=== PATIENT | female | born 1985 | race Caucasian/White ===

== ENCOUNTER → 2022-09-05 16:48 | Outpatient (CLI) | payer BC, SELFPAY ==
[2022-09-05 17:38] LABS: Add Manual Diff / Slide Review NO; Basophils Absolute Auto 0 /uL (0-100); Basophils Percent Auto 0.4 % (0-2); Eosinophils Absolute Auto 100 /uL (0-450); Eosinophils Percent Auto 1.9 % (2-4); Lymphocytes Absolute Auto 2200 /uL (1100-4500); Lymphocytes Percent Auto 29.8 % (25-40); Mean Corpuscular HGB Conc 33.4 % (30-36); Mean Corpuscular Hemoglobin 27.7 PG (26-34); Mean Corpuscular Volume 82.9 fL (80-100); Monocytes Absolute Auto 500 /uL (0-900); Monocytes Percent Auto 6.9 % (3-14); Neutrophils Absolute Auto 4500 /uL (1500-7000); Platelet Count 275 X10^3/uL (150-400); Red Cell Distribution Width 12.5 % (11.6-14.8); White Blood Cell Count 7.3 X10^3/uL (4.5-11.0)
[2022-09-05 18:08] LABS: Alanine Aminotransferase 18 IU/L (<35); Albumin 4.9 g/dL (3.5-5.0); Albumin Globulin Ratio 1.4 (1.0-2.8); Alkaline Phosphatase 89 U/L (38-126); Aspartate Aminotransferase 21 IU/L (14-36); BUN Creatinine Ratio 25.4 (6-22); Bilirubin Total 0.2 mg/dL (0.2-1.3); Blood Urea Nitrogen 15 mg/dL (7-17); C-Reactive Protein Quant < 0.5 mg/dL (<1.0); Calcium 9.7 mg/dL (8.4-10.2); Carbon Dioxide 27 mmol/L (22-32); Chloride 101 mmol/L (98-107); Estimated Glomerular Filt Rate > 60 mL/min (>60); Globulin 3.5 g/dL (1.7-4.1); Glucose 103 mg/dL (70-100); HEMOLYSIS < 15 (0-50); Potassium 3.6 mmol/L (3.4-5.1); Sodium 139 mmol/L (137-145); Total Protein 8.4 g/dL (6.3-8.2)
[2022-09-05 18:31] LABS: Rheumatoid Factor < 8.6 IU/mL (<12.0)
[2022-09-05 18:37] LABS: TSH w/ Reflex to FT4 3.15 uIU/mL (0.47-4.68)
[2022-09-05 20:23] LABS: Erythrocyte Sedimentation Rate 5 MM/HR (0-20)
[2022-09-07 11:16] LABS: CCP Antibodies IgG/IgA 2 units (0-19)
[2022-09-08 16:06] LABS: ANA Screen, IFA Negative (.)
== END ==
PROVIDERS: PCP Family Medicine; Referring Provider Family Medicine; Visit Provider Family Medicine
DX: E78.5 Hyperlipidemia, unspecified (principal); I73.00 Raynaud's syndrome without gangrene; M25.50 Pain in unspecified joint
CPT/HCPCS: 36415; 80053; 84443; 84550; 85025; 85651; 86038; 86140; 86200; 86430

== ENCOUNTER → 2023-10-16 17:30 | Outpatient (CLI) | payer BC, SELFPAY | PROVIDERS: PCP Family Medicine; Visit Provider Registered Nurse | DX: J02.9 Acute pharyngitis, unspecified (principal) | CPT/HCPCS: 87070 ==

== ENCOUNTER → 2023-10-25 16:20 | Outpatient (CLI) | payer BC, SELFPAY ==
[2023-10-25 17:18] LABS: Add Manual Diff / Slide Review NO; Basophils Absolute Auto 100 /uL (0-100); Basophils Percent Auto 0.8 % (0-2); Eosinophils Absolute Auto 200 /uL (0-450); Hematocrit 37.6 % (36-46); Hemoglobin 12.4 g/dL (12.0-16.0); Lymphocytes Absolute Auto 2500 /uL (1100-4500); Lymphocytes Percent Auto 32.2 % (25-40); Mean Corpuscular HGB Conc 32.9 % (30-36); Mean Corpuscular Hemoglobin 27.4 PG (26-34); Mean Corpuscular Volume 83.3 fL (80-100); Monocytes Absolute Auto 500 /uL (0-900); Monocytes Percent Auto 6.4 % (3-14); Neutrophils Absolute Auto 4600 /uL (1500-7000); Neutrophils Percent Auto 58.6 % (50-75); Platelet Count 263 X10^3/uL (150-400); Red Blood Cell Count 4.51 X10^6/uL (4.0-5.2); White Blood Cell Count 7.9 X10^3/uL (4.5-11.0)
[2023-10-25 17:50] LABS: Alanine Aminotransferase 16 IU/L (<35); Albumin 4.5 g/dL (3.5-5.0); Albumin Globulin Ratio 1.3 (1.0-2.8); Alkaline Phosphatase 72 U/L (38-126); Aspartate Aminotransferase 20 IU/L (14-36); BUN Creatinine Ratio 18.2 (6-22); Bilirubin Total 0.3 mg/dL (0.2-1.3); Blood Urea Nitrogen 12 mg/dL (7-17); Calcium 9.5 mg/dL (8.4-10.2); Carbon Dioxide 27 mmol/L (22-32); Chloride 104 mmol/L (98-107); Cholesterol 163 mg/dL (140-199); Estimated Glomerular Filt Rate > 60 mL/min (>60); Globulin 3.4 g/dL (1.7-4.1); Glucose 97 mg/dL (70-100); HDL Cholesterol 45 mg/dL (40-60); HEMOLYSIS < 15 (0-50); LDL Cholesterol Calculated 101 mg/dL (<100); Potassium 4.1 mmol/L (3.4-5.1); Sodium 138 mmol/L (137-145); Total Protein 7.9 g/dL (6.3-8.2); Triglycerides 86 mg/dL (35-150)
[2023-10-26 16:34] LABS: HIV 1 & 2 Ab/Ag 4th Gen Combo NEGATIVE (NEGATIVE); Hep C Virus Ab w/Reflex Quant NEGATIVE s/c (NEGATIVE)
== END ==
LOC: LAB 16:20
PROVIDERS: PCP Family Medicine; Referring Provider Family Medicine; Visit Provider Family Medicine
DX: Z00.00 Encounter for general adult medical examination without abnormal findings (principal); Z11.4 Encounter for screening for human immunodeficiency virus [HIV]; Z11.59 Encounter for screening for other viral diseases; G44.84 Primary exertional headache
CPT/HCPCS: 36415; 80053; 80061; 85025; 86803; 87389

== ENCOUNTER → 2023-11-04 07:25 | Outpatient (CLI) | payer BC, SELFPAY ==
--- NOTE | 2023-11-04 07:28 | DI.MRI.S_ITS ---
PROCEDURE: MR HEAD/BRAIN WO/W CON INDICATIONS: exertional MADISON's TECHNIQUE: Noncontrast axial T1 spin echo, axial T2 fast spin echo, sagittal and axial FLAIR, coronal T2 fast spin echo, axial gradient echo, axial diffusion and ADC through the brain. After the administration of contrast, axial and coronal and sagittal 3D VIBE or T1 spin echo with fat saturation through the brain. COMPARISON: None. FINDINGS: Image quality: Diagnostic, with note made of motion artifact. CSF Spaces: Basal cisterns are patent. No extra-axial fluid collections. Ventricles are normal in size and shape. Brain: No midline shift. No intracranial bleeds or masses. No abnormal intracranial enhancement. The brainstem appears normal. Diffusion-weighted images demonstrate no acute infarct. No chronic ischemic insults. Normal intravascular flow voids are present. The cerebellar tonsils demonstrate a normal shape and are not abnormally low lying. Skull and face: Calvarial marrow is normal in signal. Orbits appear normal. Sinuses: Sinuses and mastoids appear clear. IMPRESSION: Normal intracranial study, without a cause of the patient's presenting history identified. No masses or abnormal enhancement can be seen. Negative for Chiari 1 malformation, hydrocephalus, or brain edema. If there is strong clinical concern for an intracranial aneurysm in this patient with this given history, please consider a dedicated MR angiogram for further evaluation. Dictated by: Miguel Henderson M.D. on 11/06/2023 at 10:15 Approved by: Miguel Henderson M.D. on 11/06/2023 at 10:17
== END ==
LOC: MRI 07:26
PROVIDERS: PCP Family Medicine; Referring Provider Family Medicine; Visit Provider Family Medicine
DX: G44.84 Primary exertional headache (principal)
CPT/HCPCS: 70553; A9579

== ENCOUNTER 2024-02-18 15:00 | Emergency (ER) | payer BC, SELFPAY ==
[2024-02-18] VITALS (9 sets, daily range): BP systolic 114–168; BP diastolic 67–84; PULSE 73–103; RESP 9–24; TEMP 36.7; O2SAT 100; BMI 29.0
--- NOTE | 2024-02-18 15:03 | DI.RAD.S_ITS ---
PROCEDURE: XR CHEST 1V INDICATIONS: chest pain TECHNIQUE: One view of the chest was acquired. COMPARISON: None. FINDINGS: Surgical changes and devices: None. Lungs and pleura: Lungs are clear. No pleural effusions or pneumothorax. Mediastinum: Mediastinal contours appear normal. Heart size is normal. Bones and chest wall: No suspicious bony lesions. Overlying soft tissues appear unremarkable. IMPRESSION: No acute cardiopulmonary abnormality is seen. Dictated by: Miguel Henderson M.D. on 02/18/2024 at 14:51 Approved by: Miguel Henderson M.D. on 02/18/2024 at 14:52
--- NOTE | 2024-02-18 15:03 | EKG_ITS ---
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
[2024-02-18 15:36] LABS: Add Manual Diff / Slide Review NO; Basophils Absolute Auto 100 /uL (0-100); Basophils Percent Auto 0.9 % (0-2); Eosinophils Absolute Auto 100 /uL (0-450); Eosinophils Percent Auto 0.7 % (2-4); Hemoglobin 12.7 g/dL (12.0-16.0); Lymphocytes Absolute Auto 2300 /uL (1100-4500); Lymphocytes Percent Auto 25.7 % (25-40); Mean Corpuscular HGB Conc 32.7 % (30-36); Mean Corpuscular Hemoglobin 27.8 PG (26-34); Monocytes Absolute Auto 400 /uL (0-900); Monocytes Percent Auto 4.8 % (3-14); Neutrophils Absolute Auto 6100 /uL (1500-7000); Neutrophils Percent Auto 67.9 % (50-75); Platelet Count 267 X10^3/uL (150-400); Red Blood Cell Count 4.59 X10^6/uL (4.0-5.2); Red Cell Distribution Width 12.6 % (11.6-14.8); White Blood Cell Count 9.1 X10^3/uL (4.5-11.0)
[2024-02-18 15:37] LABS: Prothrombin Time 11.1 SECONDS (9.4-12.5)
[2024-02-18 15:40] LABS: PTT Partial Thromboplastin Tim 34 SECONDS (25.1-36.5)
[2024-02-18 15:41] LABS: Alanine Aminotransferase 22 IU/L (<35); Albumin Globulin Ratio 1.6 (1.0-2.8); Alkaline Phosphatase 56 U/L (38-126); Aspartate Aminotransferase 27 IU/L (14-36); Bilirubin Total 0.5 mg/dL (0.2-1.3); Blood Urea Nitrogen 13 mg/dL (7-17); Calcium 9.7 mg/dL (8.4-10.2); Carbon Dioxide 28 mmol/L (22-32); Chloride 105 mmol/L (98-107); Creatine Kinase 70 U/L (30-135); Estimated Glomerular Filt Rate > 60 mL/min (>60); Globulin 3.1 g/dL (1.7-4.1); Glucose 138 mg/dL (70-100); HEMOLYSIS 24 (0-50); Lipase 100 U/L (23-300); Magnesium 1.8 mg/dL (1.6-2.3); Potassium 3.2 mmol/L (3.4-5.1); Sodium 141 mmol/L (137-145); Total Protein 8.1 g/dL (6.3-8.2)
--- NOTE | 2024-02-18 15:41 | ED_ITS ---
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 States it has not resolved seems to get a little bit worse as the day goes by in his better overnight. Patient states she has not tried exercising since but has not noticed any other exacerbating factors. Movement does not seem to be a significant source of her symptoms. She was shopping today and felt a little lightheaded and has a little bit of chest discomfort that does not radiate anywhere else. Patient denies any shortness of breath. No syncope. No fevers. No cough cold or congestion. No nausea or vomiting. No issues such as diaphoresis or swelling in extremities. States no daily prescription medications, she had a DVT with her 1st had anticoagulation for her 2nd with no recurrence. DVT was felt to be provoked by the . Had history of tubal ligation and C- section. Family history her father had an VT around age 64. No tobacco, alcohol or recreational drugs. No long distance travel. Related Data Home Medications Medication Instructions Recorded Confirmed acetaminophen 325 mg tablet 325 mg PO ONCE PRN 08/30/22 10/25/23 (Tylenol) ibuprofen 200 mg tablet 200 mg PO Q6H PRN 08/30/22 10/25/23 Previous Rx's Medication Instructions Recorded metoclopramide HCl 10 mg tablet 10 mg PO TID PRN headache #30 tabs 10/25/23 (Reglan) Allergies Allergy/AdvReac Type Severity Reaction Status Date / Time adhesive tape AdvReac Unknown Verified 10/25/23 09:00 doxycyline AdvReac Unknown Uncoded 10/25/23 09:00 oxycodone AdvReac Unknown Uncoded 10/25/23 09:00 Review of Systems Review of Systems ROS Unobtainable: All systems reviewed & are unremarkable except as noted in HPI and below Patient History Medical History History of deep vein thrombosis (DVT) during History of vaginal delivery Hyperlipidemia Surgical History Surgical history of tubal ligation History of section Social History Smoking Status: Never smoker Smoking Status: Never smoker Exam Narrative Exam Narrative: GENERAL: Alert and oriented x three, well-appearing female in mild distress HEENT: Head normocephalic, atraumatic, EOMI, pupils reactive, face symmetric, moist mucous membranes NECK: Supple, full range of motion CARDIOVASCULAR: Regular rate and rhythm without murmurs, rubs or gallops. No JVD. No edema bilateral upper extremities or lower extremities. RESPIRATORY: Breath sounds equal bilaterally, no wheezes rales or rhonchi. No tachypnea or accessory muscle use. Normal speech. ABDOMEN: Soft, nontender. Normoactive bowel sounds all 4 quadrants. No guarding or rebound, rigidity, no mass : No CVA tenderness EXTREMITIES: Normal range of motion, no clubbing or edema. Neurovascularly intact NEUROLOGICAL: Cranial nerves II through XII grossly intact. Moving all extremities SKIN: Warm, dry, no petechiae, no rashes or lesions. Initial Vital Signs Initial Vital Signs: Vital Signs Pulse Rate 103 H 02/18/24 15:03 Blood Pressure 168/77 H 02/18/24 15:03 Pulse Oximetry 100 02/18/24 15:03 Scores HEART Score Heart Score history: Moderately Suspicious Heart Score EKG: Normal Heart Score Age: < 45 years old Heart Score risk factors: No known risk factors Heart Score troponin: < or = to normal limit Heart Score Total: 1 Course Orders Ordered: ED Orders 02/18/24 15:03 XR chest 1V Stat EKG-12 Lead Stat 02/18/24 15:21 Complete Blood Count AUTO DIFF Stat Comprehensive Metabolic Panel Stat D Dimer Stat Lipase Stat Magnesium Stat NT-proBNP (BNP-Adult 18+) Stat PTT Partial Thromboplastin Mg Stat Prothrombin Time INR Stat Troponin & CK Cardiac Panel Stat 02/18/24 17:15 EKG-12 Lead Stat 02/18/24 17:20 Trop I [Troponin I] Stat Discontinued Medications Aspirin (Aspirin 81 Mg Chew Tab) 324 mg PO NOW ONE Stop: 02/18/24 15:04 Potassium Chloride (Potassium Chloride 20 Meq Tab) 40 meq PO NOW ONE Stop: 02/18/24 16:20 Last Admin: 02/18/24 16:29 Dose: 40 meq Documented By: ES Vital Signs Vital signs: Vital Signs - 8 hr 02/18/24 15:03 02/18/24 15:03 02/18/24 15:06 Temperature 98.0 F Pulse Rate 103 H 97 H Respiratory Rate 20 Blood Pressure 168/77 H 168/77 H Pulse Oximetry 100 100 Oxygen Delivery Method Room Air 02/18/24 15:31 02/18/24 15:33 02/18/24 15:33 Temperature Pulse Rate 86 88 Respiratory Rate 9 L Blood Pressure 154/83 H Pulse Oximetry 100 Oxygen Delivery Method 02/18/24 16:00 02/18/24 16:00 02/18/24 16:30 Temperature Pulse Rate 76 84 Respiratory Rate 19 24 Blood Pressure 146/75 H Pulse Oximetry 100 100 Oxygen Delivery Method 02/18/24 16:31 02/18/24 16:31 02/18/24 17:00 Temperature Pulse Rate 84 73 Respiratory Rate 18 20 Blood Pressure 139/84 Pulse Oximetry 100 100 Oxygen Delivery Method 02/18/24 17:00 02/18/24 17:30 02/18/24 17:30 Temperature Pulse Rate 78 Respiratory Rate 18 Blood Pressure 114/67 127/80 Pulse Oximetry 100 Oxygen Delivery Method MDM - Chest Pain Lab Data 02/18/24 15:21 02/18/24 15:21 Labs: Lab Results 02/18/24 02/18/24 Range/Units 15:21 17:20 WBC 9.1 (4.5-11.0) X10^3/uL RBC 4.59 (4.0-5.2) X10^6/uL Hgb 12.7 (12.0-16.0) g/dL Hct 39.0 (36-46) % MCV 85.0 (80-100) fL MCH 27.8 (26-34) PG MCHC 32.7 (30-36) % RDW 12.6 (11.6-14.8) % Plt Count 267 (150-400) X10^3/uL Neut % (Auto) 67.9 (50-75) % Lymph % (Auto) 25.7 (25-40) % [place] % (Auto) 4.8 (3-14) % Eos % (Auto) 0.7 L (2-4) % Baso % (Auto) 0.9 (0-2) % Neut # (Auto) 6100 (4725-3352) /uL Lymph # (Auto) 2300 (3720-8920) /uL [place] # (Auto) 400 (0-900) /uL Eos # (Auto) 100 (0-450) /uL Baso # (Auto) 100 (0-100) /uL PT 11.1 (9.4-12.5) SECONDS INR 1.0 (0.9-1.3) APTT 34 (25.1-36.5) SECONDS D-Dimer < 215 (<500) ng/ml Sodium 141 (137-145) mmol/L Potassium 3.2 L (3.4-5.1) mmol/L Chloride 105 (98-107) mmol/L Carbon Dioxide 28 (22-32) mmol/L BUN 13 (7-17) mg/dL Creatinine 0.65 (0.52-1.04) mg/dL Estimated GFR > 60 (>60) mL/min BUN/Creatinine Ratio 20.0 (6-22) Glucose 138 H (70-100) mg/dL Calcium 9.7 (8.4-10.2) mg/dL Magnesium 1.8 (1.6-2.3) mg/dL Total Bilirubin 0.5 (0.2-1.3) mg/dL AST 27 (14-36) IU/L ALT 22 (<35) IU/L Alkaline Phosphatase 56 (38-126) U/L Total Creatine Kinase 70 (30-135) U/L Troponin I < 0.012 < 0.012 (0.01-0.034) ng/mL NT-Pro-B Natriuret Pep 119 (<125) pg/mL Total Protein 8.1 (6.3-8.2) g/dL Albumin 5.0 (3.5-5.0) g/dL Globulin 3.1 (1.7-4.1) g/dL Albumin/Globulin Ratio 1.6 (1.0-2.8) Lipase 100 (23-300) U/L Imaging Data Chest x-ray: Radiologist's Impression: Susan Flores??38??F??1985 ? Allergy/Adv: adhesive tape, [doxycyline], [oxycodone] (More??) Close Chest X-Ray (Signed) Miguel Henderson - 02/18/24 Brain MRI (Signed) Miguel Henderson - 11/04/23 Launch?Image [address] [address] XRay Report Signed Patient: Susan Flores MR#: [id number] : 1985 Acct:[id number] Age/Sex: 38 / F Date of Service: 02/18/24 Loc: ED Accession Number: [id number] Procedure: XR chest 1V Ordering Provider: Shy Quiroga D.O. PROCEDURE: XR CHEST 1V INDICATIONS: chest pain TECHNIQUE: One view of the chest was acquired. COMPARISON: None. FINDINGS: Surgical changes and devices: None. Lungs and pleura: Lungs are clear. No pleural effusions or pneumothorax. Mediastinum: Mediastinal contours appear normal. Heart size is normal. Bones and chest wall: No suspicious bony lesions. Overlying soft tissues appear unremarkable. IMPRESSION: No acute cardiopulmonary abnormality is seen. Dictated by: Miguel Henderson M.D. on 02/18/2024 at 14:51 Approved by: Miguel Henderson M.D. on 02/18/2024 at 14:52 ECG Data Attestation: I personally reviewed and interpreted this ECG as follows: Prior ECG tracings: not available for review Interpretation: Rhythm rate 88 CT 156 QRS is 78 QTC of [address] changes appreciated. No priors available for comparison MDM Narrative Medical decision making narrative: 38-year-old female with right neck pain radiating down towards the chest starting after swimming on Monday has been intermittent not persistent no acute neurologic changes patient does not have lot of cardiac risk factors her father had a VT in his mid 60s. Discussed she did have a DVT suspected to be provoked she was but is no longer anticoagulated. Discussed obtaining CT chest but patient prefers to do lab work we discussed risks versus benefits. Labs normal white count hemoglobin and platelets, coags are negative, D-dimer is less than 215. Sodium is 141 potassium 3.2 chloride 105 CO2 is 28 with a BUN of 13 creatinine 0.65 glucose is 138 LFTs are negative troponins less than 0.012 with a BNP of 119. Lipase is 100. Repeat troponin is less than 0.012 EKG sinus rhythm rate [address] changes appreciated Chest x-ray shows no acute change Patient has not been tachycardic has been slightly hypertensive 100% room air. Heart score is 1. Discussed with patient D-dimer is not completely rule out pulmonary emboli she does have some risk factor but she was quite reluctant to obtain CTA. Discussed risks versus benefits. Patient has mild hypo kalemia. She had oral potassium here in the department. Discharge Plan Departure Patient Disposition: Home Clinical Impression: Atypical chest pain, Hypokalemia Instructions: DI for Atypical Chest Pain Activity Restrictions/Additional Instructions: Follow up for recheck if you are having persistent symptoms. You had a mild hypokalemia or low potassium you did receive some oral replacement here in the department. Please return for new or worsening chest pain, shortness of breath, lightheadedness or passing out, new swelling of your extremities, persistent vomiting, fevers, coughing up blood or other new or concerning changes. Prescriptions: No Action metoclopramide HCl [Reglan] 10 mg tablet 10 mg PO TID PRN (Reason: headache) Qty: 30 3RF ibuprofen 200 mg tablet 200 mg PO Q6H PRN acetaminophen [Tylenol] 325 mg tablet 325 mg PO ONCE PRN Referrals: Deo Isbell DO [Primary Care Provider] - Stand Alone Forms: Patient Portal/API/Survey
[2024-02-18 15:52] LABS: NT-proBNP (BNP-Adult 18+) 119 pg/mL (<125); Troponin I < 0.012 ng/mL (0.01-0.034)
[2024-02-18 16:02] LABS: D Dimer < 215 ng/ml (<500)
[2024-02-18] MEDS: POTASSIUM CHLORIDE 20 MEQ TAB 40 MEQ PO (16:29)
--- NOTE | 2024-02-18 17:15 | EKG_ITS ---
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
[2024-02-18 17:50] LABS: Troponin I < 0.012 ng/mL (0.01-0.034)
== END 2024-02-18 18:13 | disposition home or self-care (01) ==
PROVIDERS: Emergency Provider Emergency Medicine; PCP Family Medicine
DX: R07.89 Other chest pain (principal); E87.6 Hypokalemia
CPT/HCPCS: 36415; 71045; 80053; 82550; 83690; 83735; 83880; 84484; 85025; 85379; 85610; 85730; 93005; 93010; 99284

== ENCOUNTER 2024-02-23 08:30 | Emergency (ER) | payer BC, SELFPAY ==
[2024-02-23] VITALS (13 sets, daily range): BP systolic 114–169; BP diastolic 59–93; PULSE 72–115; RESP 13–21; TEMP 36.4; O2SAT 98–100; BMI 29.0
--- NOTE | 2024-02-23 08:37 | ED.GENADULT ---
HPI - General Adult General Chief complaint: Neck Pain/Injury Stated complaint: Still having neck pain Time Seen by Provider: 02/23/24 08:36 Source: patient, RN notes reviewed and old records reviewed Mode of arrival: Ambulatory Limitations: no limitations History of Present Illness HPI narrative: 38-year-old female history of heterozygous factor 5 and DVT , was treated with aspirin no longer on anticoagulation presents with complaint of right-sided neck pain that radiates a little bit up towards her ear and a little bit down into her right shoulder. She states similar to symptoms when she was here on 02/18/2024 but not appreciating pain down in her chest. No fevers. She states she was felt generally unwell. She has had a little bit of discomfort in her throat but no hoarseness or voice changes. No sore throat reported. Has a little bit headache last night but typically pain is in the neck itself. Patient states no shortness of breath no syncope. No fevers, no cold cough or congestion symptoms. Had some nausea in the other night but none today no vomiting. No diaphoresis or swelling in extremities. States symptoms improved briefly but are still present and a little bit more intense. No daily prescription medications. Had a DVT postpartumWith the 1st anticoagulated with aspirin for 2nd with no reoccurrence. DVT was thought to be provoked by the . Has history of tubal ligation and . Family history dad had an MD around age 64. No tobacco, alcohol or recreational drugs. Related Data Home Medications Medication Instructions Recorded Confirmed acetaminophen 325 mg tablet 325 mg PO ONCE PRN 08/30/22 10/25/23 (Tylenol) ibuprofen 200 mg tablet 200 mg PO Q6H PRN 08/30/22 10/25/23 Previous Rx's Medication Instructions Recorded metoclopramide HCl 10 mg tablet 10 mg PO TID PRN headache #30 tabs 10/25/23 (Reglan) Allergies Allergy/AdvReac Type Severity Reaction Status Date / Time adhesive tape AdvReac Unknown Verified 10/25/23 09:00 doxycyline AdvReac Unknown Uncoded 10/25/23 09:00 oxycodone AdvReac Unknown Uncoded 10/25/23 09:00 Review of Systems Review of Systems ROS Unobtainable: All systems reviewed & are unremarkable except as noted in HPI and below Patient History Medical History History of deep vein thrombosis (DVT) during History of vaginal delivery Hyperlipidemia Surgical History Surgical history of tubal ligation History of section Social History Smoking Status: Never smoker Smoking Status: Never smoker Exam Narrative Exam Narrative: GEN: well nourished, well appearing female, alert and oriented x 3, patient appears to be in mild distress. HEENT: Atraumatic, pupils are equal round reactive to light, extraocular movements are intact, nares are clear, TMs are clear with no fluid, there is no conjunctival pallor. Throat is clear without any exudates, erythema, tonsillar enlargement or uvular deviation. no swelling no erythema, no carotid bruit. Full range of motion. No warmth, no erythema. No meningeal signs. Full rotation. No hoarseness. Normal speech. No thyromegaly appreciated. HEART: Regular rate and rhythm without murmur, clicks, rubs. Pulses are equal in bilateral upper extremities LUNGS:Lungs clear to auscultation, no wheezes, rales, crackles, chest moves symmetrically ABD:bowel sounds normal, soft, non-tender, no guarding, rebound, rigidity, no masses noted, no hepatosplenomegaly :No CVA tenderness MSCL: Non-tender, no muscle atrophy, muscles strength 5/5 upper and lower extremities, full range of motion, normal gait NEURO:CN 2-12 intact, sensation normal. SKIN: no rash, no erythema no other skin changes noted. Initial Vital Signs Initial Vital Signs: Vital Signs Temperature 97.6 F 02/23/24 08:36 Pulse Rate 113 H 02/23/24 08:36 Respiratory Rate 20 02/23/24 08:36 Blood Pressure 114/83 02/23/24 08:36 Pulse Oximetry 100 02/23/24 08:36 Oxygen Delivery Method Room Air 02/23/24 08:36 Course Orders Ordered: Discontinued Medications Aspirin (Aspirin 81 Mg Chew Tab) 324 mg PO NOW ONE Stop: 02/23/24 08:45 Last Admin: 02/23/24 08:46 Dose: Not Given Documented By: RB Vital Signs Vital signs: Vital Signs - 8 hr 02/23/24 08:36 02/23/24 08:54 02/23/24 08:54 Temperature 97.6 F Pulse Rate 113 H 115 H Respiratory Rate 20 Blood Pressure 114/83 136/81 Pulse Oximetry 100 100 Oxygen Delivery Method Room Air 02/23/24 09:00 02/23/24 09:30 02/23/24 10:00 Temperature Pulse Rate 111 H 93 H 88 Respiratory Rate 21 16 17 Blood Pressure Pulse Oximetry 100 100 100 Oxygen Delivery Method 02/23/24 10:17 02/23/24 10:17 02/23/24 10:30 Temperature Pulse Rate 81 Respiratory Rate 16 Blood Pressure 129/71 126/71 Pulse Oximetry 100 Oxygen Delivery Method 02/23/24 10:30 02/23/24 11:00 02/23/24 11:00 Temperature Pulse Rate 78 82 Respiratory Rate 15 14 Blood Pressure 131/72 Pulse Oximetry 99 100 Oxygen Delivery Method 02/23/24 11:28 02/23/24 11:28 02/23/24 11:30 Temperature Pulse Rate 88 Respiratory Rate 17 Blood Pressure 169/93 H 142/75 H Pulse Oximetry 98 Oxygen Delivery Method 02/23/24 11:30 02/23/24 12:00 02/23/24 12:00 Temperature Pulse Rate 89 72 Respiratory Rate 13 15 Blood Pressure 133/71 Pulse Oximetry 100 100 Oxygen Delivery Method 02/23/24 12:30 02/23/24 12:30 02/23/24 13:00 Temperature Pulse Rate 76 78 Respiratory Rate 13 14 Blood Pressure 128/75 Pulse Oximetry 99 100 Oxygen Delivery Method 02/23/24 13:00 Temperature Pulse Rate Respiratory Rate Blood Pressure 120/59 L Pulse Oximetry Oxygen Delivery Method Medical Decision Making Lab Data 02/23/24 09:15 02/23/24 09:15 Labs: Lab Results 02/23/24 02/23/24 Range/Units 09:15 12:30 WBC 6.0 (4.5-11.0) X10^3/uL RBC 4.42 (4.0-5.2) X10^6/uL Hgb 12.1 (12.0-16.0) g/dL Hct 37.4 (36-46) % MCV 84.6 (80-100) fL MCH 27.5 (26-34) PG MCHC 32.4 (30-36) % RDW 12.4 (11.6-14.8) % Plt Count 267 (150-400) X10^3/uL Neut % (Auto) 59.6 (50-75) % Lymph % (Auto) 31.2 (25-40) % Stanislaus % (Auto) 6.9 (3-14) % Eos % (Auto) 1.8 L (2-4) % Baso % (Auto) 0.5 (0-2) % Neut # (Auto) 3600 (6555-2984) /uL Lymph # (Auto) 1900 (7776-8780) /uL Stan[place]aus # (Auto) 400 (0-900) /uL Eos # (Auto) 100 (0-450) /uL Baso # (Auto) 0 (0-100) /uL PT 11.9 (9.4-12.5) SECONDS INR 1.1 (0.9-1.3) APTT 34 (25.1-36.5) SECONDS Sodium 138 (137-145) mmol/L Potassium 3.6 (3.4-5.1) mmol/L Chloride 105 (98-107) mmol/L Carbon Dioxide 24 (22-32) mmol/L BUN 11 (7-17) mg/dL Creatinine 0.71 (0.52-1.04) mg/dL Estimated GFR > 60 (>60) mL/min BUN/Creatinine Ratio 15.5 (6-22) Glucose 116 H (70-100) mg/dL Calcium 9.2 (8.4-10.2) mg/dL Magnesium 1.6 (1.6-2.3) mg/dL Total Bilirubin 0.8 (0.2-1.3) mg/dL AST 27 (14-36) IU/L ALT 25 (<35) IU/L Alkaline Phosphatase 53 (38-126) U/L Total Creatine Kinase 56 (30-135) U/L Troponin I < 0.012 < 0.012 (0.01-0.034) ng/mL NT-Pro-B Natriuret Pep 46 (<125) pg/mL Total Protein 7.2 (6.3-8.2) g/dL Albumin 4.6 (3.5-5.0) g/dL Globulin 2.6 (1.7-4.1) g/dL Albumin/Globulin Ratio 1.8 (1.0-2.8) Lipase 63 (23-300) U/L Imaging Data Chest x-ray: Radiologist's Impression: [place] [address] XRay Report Signed Patient: Susan Flores MR#: [id number] : 1985 Acct:[id number] Age/Sex: 38 / F Date of Service: 02/23/24 Loc: ED Accession Number: [id number] Procedure: XR chest 1V Ordering Provider: Shy Quiroga D.O. PROCEDURE: XR CHEST 1V INDICATIONS: chest pain TECHNIQUE: One view of the chest was acquired. COMPARISON: [facility], , XR CHEST 1V, 02/18/2024, 15:04. FINDINGS: Surgical changes and devices: None. Lungs and pleura: Lungs are clear. No pleural effusions or pneumothorax. Mediastinum: Mediastinal contours appear normal. Heart size is normal. Bones and chest wall: No suspicious bony lesions. Overlying soft tissues appear unremarkable. IMPRESSION: No acute cardiopulmonary abnormality is seen. Dictated by: Tre Zimmerman M.D. on 02/23/2024 at 9:14 Approved by: Tre Zimmerman M.D. on 02/23/2024 at 9:14 US carotid: Radiologist's Impression: Close Carotid Doppler Study (Signed) Tre Zimmerman - 02/23/24 Chest X-Ray (Signed) Tre Zimmerman - 02/23/24 Launch?[place] [address] Ultrasound Report Signed Patient: Susan Flores MR#: [id number] : 1985 Acct:[id number] Age/Sex: 38 / F Date of Service: 02/23/24 Loc: ED Accession Number: [id number] Procedure: US carotid doppler BI Ordering Provider: Shy Quiroga D.O. PROCEDURE: US CAROTID DOPPLER BI INDICATIONS: right neck pain, x 1 week. TECHNIQUE: Color and pulse Doppler interrogation was performed of both carotid systems, with image documentation and velocity measurements. COMPARISON: None. FINDINGS: Stenosis calculations are based on SRU (Society of Radiologists in Ultrasound) criteria. Right side: Brachial blood pressure: Not obtained Common carotid artery peak systolic velocity: 93 cm/sec. Internal carotid artery peak systolic velocity: 112 cm/sec. Internal carotid artery end diastolic velocity: 43 cm/sec. External carotid artery peak systolic velocity: 110 cm/sec. ICA/CCA peak systolic ratio: 1.2 . Gilliland scale imaging description: No atherosclerotic disease Percent internal carotid artery stenosis: None . Vertebral artery: Flow direction is antegrade. Left side: Brachial blood pressure: 131/86 mm Hg. Common carotid artery peak systolic velocity: 88 cm/sec. Internal carotid artery peak systolic velocity: 112 cm/sec. Internal carotid artery end diastolic velocity: 52 cm/sec. External carotid artery peak systolic velocity: 99 cm/sec. ICA/CCA peak systolic ratio: 1.3 . Gilliland scale imaging description: No atherosclerotic disease Percent internal carotid artery stenosis: None . Vertebral artery: Flow direction is antegrade. IMPRESSION: No acute abnormality or hemodynamically significant stenosis. No atherosclerotic disease. Dictated by: Tre Zimmerman M.D. on 02/23/2024 at 10:23 Approved by: Tre Zimmerman M.D. on 02/23/2024 at 10:25 CT scan - chest: Radiologist's Impression: Close Chest CTA (Signed) Tre Zimmerman - 02/23/24 Carotid Doppler Study (Signed) Tre Zimmerman - 02/23/24 Chest X-Ray (Signed) Tre Zimmerman - 02/23/24 Chest X-Ray (Signed) Miguel Henderson - 02/18/24 Brain MRI (Signed) Miguel Henderson - 11/04/23 [place] [address] CT Scan Report Signed Patient: Susan Flores MR#: [id number] : 1985 Acct:[id number] Age/Sex: 38 / F Date of Service: 02/23/24 Loc: ED Accession Number: [id number] Procedure: CT angio chest PE protocol Ordering Provider: Shy Quiroga D.O. PROCEDURE: CT ANGIO CHEST PE PROTOCOL INDICATIONS: right neck pain, rad to chest, hx dvt in past. TECHNIQUE: After the administration of intravenous contrast, 2 mm thick sections acquired from the pulmonary apices to the posterior costophrenic angles. 3-dimensional maximum intensity projection (MIP) coronal and sagittal reformats were then acquired through the thorax. For radiation dose reduction, the following was used: automated exposure control, adjustment of mA and/or kV according to patient size. COMPARISON: None. FINDINGS: Image quality: Diagnostic. Pulmonary arteries: Pulmonary arteries are normal in size, and demonstrate no intraluminal filling defects to suggest central pulmonary embolism. Lower Neck: No enlarged lymph nodes. Thyroid: No thyroid nodules which require sonographic follow up, per consensus guidelines. Axillae: No enlarged lymph nodes. Chest Wall: Unremarkable. Bones: Unremarkable. Lungs and Pleura: No pneumothorax or pleural effusions. No consolidation or suspicious nodules. Heart: Heart size is normal. No pericardial effusion. Thoracic Vessels: No aortic aneurysm. Mediastinum and Ayde: No enlarged lymph nodes. Esophagus: No wall thickening. No hiatal hernia. Upper Abdomen: Visualized upper abdomen solid organs and bowel loops appear normal. IMPRESSION: No pulmonary embolus. No acute cardiopulmonary process. Dictated by: Tre Zimmerman M.D. on 02/23/2024 at 11:41 Approved by: Tre Zimmerman M.D. on 02/23/2024 at 11:43 ECG Data Attestation: I personally reviewed and interpreted this ECG as follows: Prior ECG tracings: available for review Interpretation: Sinus tachycardia rate of 107 DE 148 QRS is 64 QTC of 448, no acute ST elevation depression appreciated, Nonspecific change. Patient has prior from 02/18/2024 which appears similar. [facility] Narrative Medical decision making narrative: 38-year-old female complaint of persistent neck pain describes as more running up and down from the ear towards her right shoulder. Describes little bit of a burning sensation. Has full range of motion no clear infectious sources. Patient was here seen by myself prior had pain radiating down into her chest and had chest pain workup, negative D-dimer although we would discussed with a history factor 5 Leiden although heterozygous would recommend more imaging including CT angio head and neck as well as chest. Patient's symptoms do not seem consistent with a radicular pain although potential that this could be musculoskeletal or nerve impingement. Patient returns with similar symptoms although states not so much into her chest today. No acute neurologic changes. Patient is reluctant to have CT imaging she has had prior CTs and concerned about radiation exposure discussed ultrasound and be helpful to evaluate carotids but isn't helpful to evaluate her chest which I would like to image as well. Discussed with patient she asked if we can start with current ultrasound if we do not find any acute change she would proceed with CT of the chest. She was quite anxious about her radiation exposure. We did discuss obtaining both CT of the chest and neck as well. Also discussed possibility of infection. Vitals patient is slightly tacky she states this is fairly normal for her. Labs white count of 6 hemoglobin of 12 platelets of 267. Coags are negative, electrolytes are normal creatinine 0.71 glucose is 116 LFTs are negative troponins less than 0.012 with a BNP of 46. Troponin is repeated and negative. Chest x-ray no acute change EKG Appears similar to prior Carotid ultrasound, prelim is negative on right. Discussed with the patient awaiting formal but would recommend CT chest to rule out PE/aneurysm. CTA chest is negative. There is some confusion for patient she thought she was getting a CT of the head and neck angio small as chest after having deferred the head and neck angio and getting the ultrasound. Reviewed her ultrasound findings. CT chest is negative. Patient was encouraged to follow up with primary care for recheck. Reviewed findings with the patient, her tachycardia is improved. No other acute changes appreciated on imaging or workup today discussed with patient would like her to follow up with primary care. Discharge Plan Departure Patient Disposition: Home Clinical Impression: Neck pain on right side Instructions: DI for Neck Pain Activity Restrictions/Additional Instructions: Follow up with your physician for recheck. Please call to set up follow up appointment if you are having persistent symptoms. Your workup today, you had negative imaging of the vessels of your neck, negative CT of your chest, and labs have overall been appropriate. You can take acetaminophen and/or ibuprofen as needed for discomfort. Please return for new or worsening symptoms, chest pain, shortness of breath, lightheadedness or passing out, new swelling of your extremities, redness warmth or skin changes, changes to voice such as hoarseness, persistent vomiting, fevers, coughing up blood or other new or concerning changes. Prescriptions: No Action metoclopramide HCl [Reglan] 10 mg tablet 10 mg PO TID PRN (Reason: headache) Qty: 30 3RF ibuprofen 200 mg tablet 200 mg PO Q6H PRN acetaminophen [Tylenol] 325 mg tablet 325 mg PO ONCE PRN Referrals: Deo Isbell DO [Primary Care Provider] - Stand Alone Forms: Patient Portal/API/Survey
--- NOTE | 2024-02-23 08:44 | DI.RAD.S_ITS ---
PROCEDURE: XR CHEST 1V INDICATIONS: chest pain TECHNIQUE: One view of the chest was acquired. COMPARISON: [facility], CR, XR CHEST 1V, 02/18/2024, 15:04. FINDINGS: Surgical changes and devices: None. Lungs and pleura: Lungs are clear. No pleural effusions or pneumothorax. Mediastinum: Mediastinal contours appear normal. Heart size is normal. Bones and chest wall: No suspicious bony lesions. Overlying soft tissues appear unremarkable. IMPRESSION: No acute cardiopulmonary abnormality is seen. Dictated by: Tre Zimmerman M.D. on 02/23/2024 at 9:14 Approved by: Tre Zimmemran M.D. on 02/23/2024 at 9:14
--- NOTE | 2024-02-23 08:44 | EKG_ITS ---
[id number], [place] [address] Test Date: 2024-02-23 Pat Name: Susan Flores Department: Room: Gender: Female Pulley Man: YODIT : 1985 Requested By: Order Number: [id number] Reading MD: Irineo Duke MD Measurements Intervals [place] Rate: 107 P: 72 FL: 148 QRS: 37 QRSD: 64 T: -7 QT: 336 QTc: 448 Interpretive Statements Sinus tachycardia Possible Left atrial enlargement Cannot rule out Anterior infarct , age undetermined Electronically Signed On 02-25-2024 17:05:08 PST by Irineo Duke MD
--- NOTE | 2024-02-23 09:18 | DI.US.S_ITS ---
PROCEDURE: US CAROTID DOPPLER BI INDICATIONS: right neck pain, x 1 week. TECHNIQUE: Color and pulse Doppler interrogation was performed of both carotid systems, with image documentation and velocity measurements. COMPARISON: None. FINDINGS: Stenosis calculations are based on SRU (Society of Radiologists in Ultrasound) criteria. Right side: Brachial blood pressure: Not obtained Common carotid artery peak systolic velocity: 93 cm/sec. Internal carotid artery peak systolic velocity: 112 cm/sec. Internal carotid artery end diastolic velocity: 43 cm/sec. External carotid artery peak systolic velocity: 110 cm/sec. ICA/CCA peak systolic ratio: 1.2 . Gilliland scale imaging description: No atherosclerotic disease Percent internal carotid artery stenosis: None . Vertebral artery: Flow direction is antegrade. Left side: Brachial blood pressure: 131/86 mm Hg. Common carotid artery peak systolic velocity: 88 cm/sec. Internal carotid artery peak systolic velocity: 112 cm/sec. Internal carotid artery end diastolic velocity: 52 cm/sec. External carotid artery peak systolic velocity: 99 cm/sec. ICA/CCA peak systolic ratio: 1.3 . Gilliland scale imaging description: No atherosclerotic disease Percent internal carotid artery stenosis: None . Vertebral artery: Flow direction is antegrade. IMPRESSION: No acute abnormality or hemodynamically significant stenosis. No atherosclerotic disease. Dictated by: Tre Zimmerman M.D. on 02/23/2024 at 10:23 Approved by: Tre Zimmerman M.D. on 02/23/2024 at 10:25
[2024-02-23 09:25] LABS: Add Manual Diff / Slide Review NO; Basophils Absolute Auto 0 /uL (0-100); Basophils Percent Auto 0.5 % (0-2); Eosinophils Absolute Auto 100 /uL (0-450); Eosinophils Percent Auto 1.8 % (2-4); Hematocrit 37.4 % (36-46); Hemoglobin 12.1 g/dL (12.0-16.0); Lymphocytes Absolute Auto 1900 /uL (1100-4500); Lymphocytes Percent Auto 31.2 % (25-40); Mean Corpuscular HGB Conc 32.4 % (30-36); Mean Corpuscular Hemoglobin 27.5 PG (26-34); Mean Corpuscular Volume 84.6 fL (80-100); Monocytes Absolute Auto 400 /uL (0-900); Monocytes Percent Auto 6.9 % (3-14); Neutrophils Absolute Auto 3600 /uL (1500-7000); Neutrophils Percent Auto 59.6 % (50-75); Platelet Count 267 X10^3/uL (150-400); Red Blood Cell Count 4.42 X10^6/uL (4.0-5.2); Red Cell Distribution Width 12.4 % (11.6-14.8)
[2024-02-23 09:33] LABS: INR 1.1 (0.9-1.3); Prothrombin Time 11.9 SECONDS (9.4-12.5)
[2024-02-23 09:36] LABS: PTT Partial Thromboplastin Tim 34 SECONDS (25.1-36.5)
[2024-02-23 09:39] LABS: Alanine Aminotransferase 25 IU/L (<35); Albumin 4.6 g/dL (3.5-5.0); Albumin Globulin Ratio 1.8 (1.0-2.8); Alkaline Phosphatase 53 U/L (38-126); Aspartate Aminotransferase 27 IU/L (14-36); BUN Creatinine Ratio 15.5 (6-22); Bilirubin Total 0.8 mg/dL (0.2-1.3); Blood Urea Nitrogen 11 mg/dL (7-17); Calcium 9.2 mg/dL (8.4-10.2); Carbon Dioxide 24 mmol/L (22-32); Chloride 105 mmol/L (98-107); Creatine Kinase 56 U/L (30-135); Estimated Glomerular Filt Rate > 60 mL/min (>60); Globulin 2.6 g/dL (1.7-4.1); Glucose 116 mg/dL (70-100); HEMOLYSIS 16 (0-50); Lipase 63 U/L (23-300); Magnesium 1.6 mg/dL (1.6-2.3); Potassium 3.6 mmol/L (3.4-5.1); Sodium 138 mmol/L (137-145); Total Protein 7.2 g/dL (6.3-8.2)
[2024-02-23 09:50] LABS: NT-proBNP (BNP-Adult 18+) 46 pg/mL (<125); Troponin I < 0.012 ng/mL (0.01-0.034)
--- NOTE | 2024-02-23 10:21 | DI.CT.S_ITS ---
PROCEDURE: CT ANGIO CHEST PE PROTOCOL INDICATIONS: right neck pain, rad to chest, hx dvt in past. TECHNIQUE: After the administration of intravenous contrast, 2 mm thick sections acquired from the pulmonary apices to the posterior costophrenic angles. 3-dimensional maximum intensity projection (MIP) coronal and sagittal reformats were then acquired through the thorax. For radiation dose reduction, the following was used: automated exposure control, adjustment of mA and/or kV according to patient size. COMPARISON: None. FINDINGS: Image quality: Diagnostic. Pulmonary arteries: Pulmonary arteries are normal in size, and demonstrate no intraluminal filling defects to suggest central pulmonary embolism. Lower Neck: No enlarged lymph nodes. Thyroid: No thyroid nodules which require sonographic follow up, per consensus guidelines. Axillae: No enlarged lymph nodes. Chest Wall: Unremarkable. Bones: Unremarkable. Lungs and Pleura: No pneumothorax or pleural effusions. No consolidation or suspicious nodules. Heart: Heart size is normal. No pericardial effusion. Thoracic Vessels: No aortic aneurysm. Mediastinum and Ayde: No enlarged lymph nodes. Esophagus: No wall thickening. No hiatal hernia. Upper Abdomen: Visualized upper abdomen solid organs and bowel loops appear normal. IMPRESSION: No pulmonary embolus. No acute cardiopulmonary process. Dictated by: Tre Zimmerman M.D. on 02/23/2024 at 11:41 Approved by: Tre Zimmerman M.D. on 02/23/2024 at 11:43
[2024-02-23 13:08] LABS: Troponin I < 0.012 ng/mL (0.01-0.034)
== END 2024-02-23 13:56 | disposition home or self-care (01) ==
PROVIDERS: Emergency Provider Emergency Medicine; PCP Family Medicine
DX: M54.2 Cervicalgia (principal); R07.9 Chest pain, unspecified; R00.0 Tachycardia, unspecified
CPT/HCPCS: 36415; 71045; 71275; 80053; 82550; 83690; 83735; 83880; 84484; 85025; 85610; 85730; 93005; 93010; 93880; 99284; Q9967

== ENCOUNTER → 2024-03-18 07:42 | Outpatient (CLI) | payer BC, SELFPAY ==
--- NOTE | 2024-03-18 17:05 | DI.NM.S_ITS ---
DATE OF SERVICE: 03/18/2024 EXERCISE TREADMILL STRESS TEST PROCEDURE: Exercise treadmill stress test without imaging. ORDERING PROVIDER: Deo Isbell DO INDICATIONS: The patient is a 38-year-old female with atypical neck and chest discomfort. FINDINGS: 1. The patient was able to exercise for 9 minutes 20 seconds on a standard Deshaun protocol suggesting average exercise capacity with an SHELLY of -3%, achieving 9.3 METS. 2. She had a fairly rapid heart rate response to exercise with a resting heart rate of 88 BPM, increasing to 138 BPM after 1 minute of exercise, and achieving a maximum heart rate of 180 BPM (99% of her predicted maximum). She had a normal blood pressure response to exercise. 3. She had no chest pain or other anginal symptoms except for moderate exertional dyspnea. 4. Her resting ECG shows sinus rhythm with normal ST segments. There are no significant ST-segment shifts or arrhythmias with stress. IMPRESSION: 1. Normal exercise treadmill stress test for ischemia. 2. Average exercise capacity without angina and a fairly brisk chronotropic response to exercise but otherwise a normal hemodynamic response and no arrhythmias. Susan Flores - ARIANNA/jm/AY doc#: [id number]/job#: [id number] dd: 03/18/2024 16:17:00 dt: 03/18/2024 16:26:00 DICTATING /COPIES TO: Maximo Remy MD; Deo Isbell DO COPIES MNE: PALMA;
== END ==
PROVIDERS: PCP Family Medicine; Referring Provider Family Medicine; Visit Provider Family Medicine
DX: R07.89 Other chest pain (principal); E78.5 Hyperlipidemia, unspecified; Z82.49 Family history of ischemic heart disease and other diseases of the circulatory system
CPT/HCPCS: 93017

== ENCOUNTER → 2024-10-29 08:13 | Outpatient (CLI) | payer BC, SELFPAY ==
[2024-10-29 08:56] LABS: Influenza A - CEPHEID Flu A NEGATIVE (NEGATIVE); Influenza B - CEPHEID Flu B NEGATIVE (NEGATIVE)
[2024-10-29 08:59] LABS: COVID-19 CEPHEID 4-PLEX PCR POSITIVE (Negative)
== END ==
PROVIDERS: PCP Family Medicine; Visit Provider Chiropractor
DX: R05.1 Acute cough (principal)
CPT/HCPCS: 87637

== ENCOUNTER → 2025-01-28 07:33 | Outpatient (CLI) | payer BC, SELFPAY ==
[2025-01-28 08:04] LABS: Hematocrit 38.6 % (36-46); Hemoglobin 12.8 g/dL (12.0-16.0); Mean Corpuscular HGB Conc 33.0 % (30-36); Mean Corpuscular Hemoglobin 27.6 PG (26-34); Mean Corpuscular Volume 83.5 fL (80-100); Platelet Count 272 X10^3/uL (150-400)
[2025-01-28 09:23] LABS: Alanine Aminotransferase 20 IU/L (<35); Albumin 4.7 g/dL (3.5-5.0); Albumin Globulin Ratio 1.5 (1.0-2.8); Alkaline Phosphatase 67 U/L (38-126); Blood Urea Nitrogen 12 mg/dL (7-17); Calcium 9.2 mg/dL (8.4-10.2); Carbon Dioxide 27 mmol/L (22-32); Chloride 103 mmol/L (98-107); Cholesterol 188 mg/dL (140-199); Estimated Glomerular Filt Rate > 60 mL/min (>60); Globulin 3.1 g/dL (1.7-4.1); Glucose 90 mg/dL (70-99); HDL Cholesterol 50 mg/dL (40-60); HEMOLYSIS < 15 (0-50); Potassium 4.8 mmol/L (3.4-5.1); Sodium 140 mmol/L (137-145); Total Protein 7.8 g/dL (6.3-8.2); Triglycerides 103 mg/dL (35-150)
== END ==
PROVIDERS: PCP Family Medicine; Referring Provider Family Medicine; Visit Provider Family Medicine
DX: Z00.00 Encounter for general adult medical examination without abnormal findings (principal); E78.5 Hyperlipidemia, unspecified; R19.8 Other specified symptoms and signs involving the digestive system and abdomen
CPT/HCPCS: 36415; 80053; 80061; 85027